=== PATIENT | female | born 2000 | race Caucasian/White ===

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

== ENCOUNTER → 2018-01-26 | Outpatient (CLI) | payer OTHER ==
[~2018-01-26] MED LIST: BCPILLS PO
--- NOTE | 2018-01-26 14:44 | DIAGNOSTIC IMAGING REPORT ---
ABD/PELVIS NO IV OR ORAL CONT CLINICAL HISTORY: 17 years-old Female presenting with FLANK PAIN. TECHNIQUE: Multidetector CT of the abdomen and pelvis was performed without the use of intravenous contrast. IV contrast: None. A dose lowering technique was used consistent with the principles of ALARA (as low as reasonably achievable). COMPARISON: 08/02/2017. CT DOSE (mGy.cm): The estimated cumulative dose is 331.79 mGy.cm. FINDINGS: [employer] topogram: Unremarkable. Lung bases: Lungs and pleural spaces clear. Normal heart size. No pericardial or pleural effusion. Liver: Normal morphology. Normal density. Biliary: No gross biliary ductal dilatation allowing for noncontrast technique. Normal gallbladder. Pancreas: Normal. Spleen: Normal. Adrenal glands: Normal. Kidneys and ureters: Normal. No hydronephrosis. Bladder: Mild circumferential bladder wall thickening suggested. Pelvic organs: 3.3 cm left ovarian low density structure likely functional cyst. Normal noncontrast appearance of the right ovary and uterus. Bowel: Mild stool burden throughout normal caliber colon. No bowel obstruction. The appendix is normal. Peritoneal cavity: No free fluid or intraperitoneal gas. Lymph nodes: No gross lymphadenopathy allowing for noncontrast technique. Vasculature: Normal noncontrast appearance. Abdominal wall: Normal. Musculoskeletal: Few bone islands noted. No acute osseous injury. IMPRESSION: 1. 3.3 cm left ovarian functional cyst. This be better characterized with ultrasound. This is almost certainly benign. 2. Mild circumferential bladder wall thickening could suggest cystitis or could be due to underdistention. Correlate with urinalysis. Electronically signed by: Edwin Mcgee M.D. 01/26/2018 2:42 PM Dictated Date/Time: 01/26/2018 2:35 PM
== END | disposition home or self-care (01) ==
LOC: C.CTS 14:17
PROVIDERS: ATTEND Physician Assistant
DX: R10.9 Unspecified abdominal pain (principal)